=== PATIENT | female | born 1950 | race Caucasian/White ===

== ENCOUNTER 2017-02-06 11:55 | Emergency (ER) | payer BC, OTHER ==
[~2017-02-06] VITALS: Ht 172.7 cm; Wt 66.6 kg
[2017-02-06 11:57] VITALS: TEMP 36.7; Ht 172.7 cm; Wt 66.6 kg
[2017-02-06 12:10] VITALS: O2SAT 98
[2017-02-06] MEDS ORDERED: DILTIAZEM BOLUS / DRIP IV STA (12:11)
[2017-02-06] MEDS ORDERED: SODIUM CHLORIDE 0.9% 1000ML 1,000 ML IV STA (12:11)
[2017-02-06] MEDS ORDERED: SODIUM CHLORIDE 0.9% 1000ML 500 ML IV STA (12:11)
[2017-02-06] MEDS ORDERED: DILTIAZEM HCL 5 MG/ML 5 ML VIAL ONE (12:14)
[2017-02-06] MEDS ORDERED: DILTIAZEM HCL 5 MG/ML 5 ML VIAL IV STA (12:15)
[2017-02-06] MEDS ORDERED: DILTIAZEM HCL INJ 125 MG in DEXTROSE 5% 100ML IV PRN (12:15)
[2017-02-06 12:19] LABS: BASO % 0.6 %; BASO ABS # 0.04 K/uL (0-0.2); COMPLETE YES; EOS % 1.1 %; HEMATOCRIT 41.2 % (37-47); IG% 0.1 %; LYMPH % 40.3 %; LYMPH ABS # 2.82 K/uL (1.2-3.4); MEAN CELL VOLUME 97.6 fL (80-100); MEAN CORPUSCULAR HEMOGLOBIN 33.6 pg (25-34); MEAN CORPUSCULAR HGB CONC 34.5 g/dl (32-36); MEAN PLATELET VOLUME 10.9 fL (7.4-10.4); MONO % 10.6 %; NEUT % 47.3 %; PLATELET COUNT 257 K/uL (130-400); RED BLOOD COUNT 4.22 M/uL (4.2-5.4); WHITE BLOOD COUNT 6.99 K/uL (4.8-10.8)
--- NOTE | 2017-02-06 12:37 | DIAGNOSTIC IMAGING REPORT ---
CHEST ONE VIEW PORTABLE HISTORY: EVALUATE ALTERED MENTAL STATUS/WEAKNESS COMPARISON: Chest 10/19/2013. FINDINGS: Stable calcified nodule within the right lower lobe. The lungs are otherwise clear. Cardiac silhouette is normal in size. No pleural effusions. No pneumothorax. S-shaped scoliosis. IMPRESSION: No significant change compared to the prior study. No acute process. Electronically signed by: Richmond Tyler M.D. 02/06/2017 12:36 PM Dictated Date/Time: 02/06/2017 12:35 PM
[2017-02-06 12:38] LABS: CALCIUM 9.4 mg/dl (8.5-10.1)
[2017-02-06 12:40] LABS: ALT/SGPT 32 U/L (12-78); BLOOD UREA NITROGEN 26 mg/dl (7-18); BUN/CREATININE RATIO 37.9 (10-20); CARBON DIOXIDE 27 mmol/L (21-32); CHLORIDE 105 mmol/L (98-107); CREATININE 0.68 mg/dl (0.60-1.20); GLUCOSE 101 mg/dl (70-99); POTASSIUM 3.9 mmol/L (3.5-5.1); PROTHROMBIN TIME (PATIENT) 10.4 SECONDS (9.0-12.0); SODIUM 140 mmol/L (136-145)
[2017-02-06 12:49] LABS: ALB/GLOB RATIO 1.4 (0.9-2); ALKALINE PHOSPHATASE 89 U/L (45-117); AST/SGOT 27 U/L (15-37); THYROID STIMULATING HORMONE 0.508 uIu/ml (0.300-4.500)
[2017-02-06 13:21] LABS: URINE APPEARANCE CLEAR (CLEAR); URINE BILIRUBIN NEG (NEG); URINE COLOR YELLOW; URINE NITRITE NEG (NEG); URINE PH 6.5 (4.5-7.5); URINE SPECIFIC GRAVITY 1.009 (1.000-1.030); UROBILINOGEN NEG (NEG); ZZUR CULT IF INDIC CLEAN CATCH NO
[2017-02-06 13:24] LABS: MANUAL MICROSCOPIC REQUIRED? NO; REVIEW REQ? NO
[2017-02-06] MEDS ORDERED: RIVAROXABAN 20 MG TAB PO STA (13:39)
[2017-02-06] MEDS ORDERED: METO25TA56 PO (13:44)
[2017-02-06] MEDS ORDERED: RIVA1TAB4 PO (13:44)
[2017-02-06 14:20] VITALS: BP 125/75; PULSE 76; O2SAT 99
--- NOTE | 2017-02-06 17:58 | EMERGENCY ROOM VISIT NOTE ---
History Report prepared by Sonali: Rosalinda Johnson Under the Supervision of: Dr. Kevin Masterson M.D. First contact with patient: 12:05 Chief Complaint: TACHYCARDIA Stated Complaint: EXTREMELY FAST HEART BEAT, SWEATS History of Present Illness The patient is a 66 year old female who presents to the Emergency Room with complaints of persistent tachycardia starting 0300 in the morning. She woke up in the middle of the night and thought that she had had a nightmare because her heart was beating very hard. She followed the instructions given to by cardiology regarding stopping A fib. She was able to slow her heart rate slightly, but she was unable to slow her heart down to normal. She went to the gym and worked out. She felt dizzy. She returned home from the gym and her heart started racing again. She reports diaphoresis. She denies any SOB or chest pain. Her resting heart rate is usually 49. She is not on any medications for heart rate control. She is not on any blood thinners. She has experienced this before the in past, but is usually able to break out of it. She has an appointment with cardiology tomorrow and is considering an ablation. Source of History: patient Onset: 0300 Position: other (global) Quality: other (tachycardia) Timing: other (persistent) Associated Symptoms: + diaphoresis, No SOB, No chest pain Note: Pt reports dizziness. Review of Systems See HPI for pertinent positives & negatives. A total of 10 systems reviewed and were otherwise negative. Family History No pertinent family history stated. Social History Smoking Status: Never Smoker Marital Status: Housing Status: lives with significant other Occupation Status: employed Current/Historical Medications Scheduled Rivaroxaban (Xarelto), 20 MG PO DAILY Scheduled PRN Metoprolol Tartrate (Lopressor) (Lopressor), 1 TAB PO DIRECTED PRN for Dizziness or Vertigo Allergies Coded Allergies: No Known Allergies (Verified Allergy, Unknown, 06/17/06) Physical Exam Vital Signs Date Time Temp Pulse Resp B/P Pulse Ox O2 Delivery O2 Flow Rate FiO2 02/06/17 14:20 76 18 125/75 99 02/06/17 13:58 66 18 112/88 96 Room Air 02/06/17 13:12 64 18 118/72 99 Room Air 02/06/17 12:38 71 16 114/73 97 Room Air 02/06/17 12:25 98 Room Air 02/06/17 12:20 75 02/06/17 12:11 145 02/06/17 12:10 98 Room Air 02/06/17 11:57 36.7 157 18 146/98 97 Room Air Physical Exam GENERAL: Patient is in no acute distress. HEENT: No acute trauma, normocephalic atraumatic, mucous membranes moist, no nasal congestion, no scleral icterus. NECK: No stridor, no adenopathy, no meningismus, trachea is midline. LUNGS: Clear to auscultation bilaterally, no wheeze, no rhonchi, breath sounds equal. HEART: Tachycardic with a slightly irregular rhythm, no murmurs. ABDOMEN: Soft, nontender, bowel sounds positive, no hernias, no peritonitis. EXTREMITIES: No cyanosis or edema, full range of motion of all the joints without pain or difficulty, no signs for acute trauma. NEUROLOGIC: Oriented x 3, no acute motor or sensory deficits, no focal weakness. SKIN: No rash, no jaundice, no diaphoresis. Medical Decision & Procedures ER Provider Diagnostic Interpretation: X-ray results as stated below per interpretation by me and the radiologist: CHEST ONE VIEW PORTABLE HISTORY: EVALUATE ALTERED MENTAL STATUS/WEAKNESS COMPARISON: Chest 10/19/2013. FINDINGS: Stable calcified nodule within the right lower lobe. The lungs are otherwise clear. Cardiac silhouette is normal in size. No pleural effusions. No pneumothorax. S-shaped scoliosis. IMPRESSION: No significant change compared to the prior study. No acute process. Electronically signed by: Richmond Tyler M.D. 02/06/2017 12:36 PM Dictated Date/Time: 02/06/2017 12:35 PM Laboratory Results 02/06/17 12:11 Red Blood Count 4.22, Mean Corpuscular Volume 97.6, Mean Corpuscular Hemoglobin 33.6, Mean Corpuscular Hemoglobin Concent 34.5, Mean Platelet Volume 10.9, Neutrophils (%) (Auto) 47.3, Lymphocytes (%) (Auto) 40.3, Monocytes (%) (Auto) 10.6, Eosinophils (%) (Auto) 1.1, Basophils (%) (Auto) 0.6, Neutrophils # (Auto ) 3.30, Lymphocytes # (Auto) 2.82, Monocytes # (Auto) 0.74, Eosinophils # (Auto ) 0.08, Basophils # (Auto) 0.04 02/06/17 12:11 Test 02/06/17 12:11 02/06/17 13:15 White Blood Count 6.99 K/uL (4.8-10.8) Red Blood Count 4.22 M/uL (4.2-5.4) Hemoglobin 14.2 g/dL (12.0-16.0) Hematocrit 41.2 % (37-47) Mean Corpuscular Volume 97.6 fL (80-100) Mean Corpuscular Hemoglobin 33.6 pg (25-34) Mean Corpuscular Hemoglobin Concent 34.5 g/dl (32-36) Platelet Count 257 K/uL (130-400) Mean Platelet Volume 10.9 fL (7.4-10.4) Neutrophils (%) (Auto) 47.3 % Lymphocytes (%) (Auto) 40.3 % Monocytes (%) (Auto) 10.6 % Eosinophils (%) (Auto) 1.1 % Basophils (%) (Auto) 0.6 % Neutrophils # (Auto) 3.30 K/uL (1.4-6.5) Lymphocytes # (Auto) 2.82 K/uL (1.2-3.4) Monocytes # (Auto) 0.74 K/uL (0.11-0.59) Eosinophils # (Auto) 0.08 K/uL (0-0.5) Basophils # (Auto) 0.04 K/uL (0-0.2) RDW Standard Deviation 43.8 fL (36.4-46.3) RDW Coefficient of Variation 12.3 % (11.5-14.5) Immature Granulocyte % (Auto) 0.1 % Immature Granulocyte # (Auto) 0.01 K/uL (0.00-0.02) Prothrombin Time 10.4 SECONDS (9.0-12.0) Prothromb Time International Ratio 1.0 (0.9-1.1) Activated Partial Thromboplast Time 26.4 SECONDS (21.0-31.0) Partial Thromboplastin Ratio 1.0 Anion Gap 8.0 mmol/L (3-11) Est Creatinine Clear Calc Drug Dose 82.1 ml/min Estimated GFR () 105.6 Estimated GFR (Non- 91.2 BUN/Creatinine Ratio 37.9 (10-20) Calcium Level 9.4 mg/dl (8.5-10.1) Total Bilirubin 0.3 mg/dl (0.2-1) Aspartate Amino Transf (AST/SGOT) 27 U/L (15-37) Alanine Aminotransferase (ALT/SGPT) 32 U/L (12-78) Alkaline Phosphatase 89 U/L (45-117) Troponin I < 0.015 ng/ml (0-0.045) Total Protein 7.6 gm/dl (6.4-8.2) Albumin 4.4 gm/dl (3.4-5.0) Globulin 3.2 gm/dl (2.5-4.0) Albumin/Globulin Ratio 1.4 (0.9-2) Thyroid Stimulating Hormone (TSH) 0.508 uIu/ml (0.300-4.500) Urine Color YELLOW Urine Appearance CLEAR (CLEAR) Urine pH 6.5 (4.5-7.5) Urine Specific [place] 1.009 (1.000-1.030) Urine Protein NEG (NEG) Urine Glucose (UA) NEG (NEG) Urine Ketones NEG (NEG) Urine Occult Blood NEG (NEG) Urine Nitrite NEG (NEG) Urine Bilirubin NEG (NEG) Urine Urobilinogen NEG (NEG) Urine Leukocyte Esterase NEG (NEG) Laboratory results reviewed by me. Medications Administered Medications (Trade) Dose Ordered Sig/Suzette Route Start Time Stop Time Status Last Admin Dose Admin Sodium Chloride 500 ml @ 999 mls/hr Q31M STAT IV 02/06/17 12:11 02/06/17 12:41 DC 02/06/17 12:35 999 MLS/HR Sodium Chloride (Nss 1000ml) 1,000 ml @ 200 mls/hr Q5H STAT IV 02/06/17 12:11 02/06/17 14:40 DC 02/06/17 12:35 200 MLS/HR Rivaroxaban (Xarelto Tab) 20 mg NOW STAT PO 02/06/17 13:39 02/06/17 13:40 DC 02/06/17 14:17 20 MG ECG Indication: tachycardia Rate (beats per minute): 146 Rhythm: other (possible A fib or A flutter) Findings: other (old septal infarct, nonspecific T wave change, no acute NM) Change: Repeat EKG: NSR, rate 73, no ischemia, no ectopy. ED Course 1208: The patient was evaluated in room A10. A complete history and physical exam was performed. 1211: NSS 1000 ml @ 200 mls/hr IV, NSS 500 ml @ 999 mls/hr IV. 1220: The patient has returned to a normal rhythm without any intervention. 1257: I discussed the patient's case with Dr. [place] [facility]. He recommend the patient be started on Xarelto. He will see the patient in the office in the near future. 1328: I reevaluated the patient. I discussed results and discharge instructions : she verbalized understanding and agreement. The patient is ready for discharge. 1339: Xarelto Tab 20 mg PO. Medical Decision Differential diagnoses considered include A fib, A flutter, SVT, electrolyte imbalance, anemia, thyroid disorder, cardiac ischemia. There is no leukocytosis or concerning anemia. No significant electrolyte abnormality, kidney failure, hepatitis. The patient appears to be a euthyroid state. EKG shows an SVT, possibly A. fib or a flutter. No acute ischemic change. Cardiac enzyme testing times one is not consistent with acute cardiac injury. Urinalysis does not show infection. Chest x-ray shows no pneumonia, cardiomegaly or CHF. The patient received IV saline. She was about to receive IV diltiazem when she suddenly broke to a normal sinus rhythm, no rate controlling medications were ever administered. The patient has remained in a normal sinus rhythm. Repeat EKG confirms a normal sinus rhythm, no ischemia. I spoke to the inspection supervisor on-call. He recommended anticoagulation with Xarelto. The patient was given an oral dose here prior to discharge. The patient is going to follow with cardiology. Xarelto daily for now as anticoagulation. She was given a prescription for Lopressor to use if her tachycardia returns. She was to use the Lopressor when necessary. If her symptoms do return, she should report back for reassessment. Consults Time Called: 0148 Consulting Physician: Dr. Lisa, [facility] [place] Returned Call: [phone] I discussed the patient's case with him. He recommend the patient be started on Xarelto. He will see the patient in the office in the near future. Impression Primary Impression: Tachycardia Scribe Attestation The scribe's documentation has been prepared under my direction and personally reviewed by me in its entirety. I confirm that the note above accurately reflects all work, treatment, procedures, and medical decision making performed by me. Departure Information Dispostion Home / Self-Care Prescriptions Metoprolol Tartrate (Lopressor) (Lopressor) 25 Mg Tab 1 TAB PO DIRECTED Y for Dizziness or Vertigo for 5 Days, #5 TAB 1 Refill take a tablet for palpitation or racing heart rate Prov: Kevin Masterson M.D. 02/06/17 Rivaroxaban (XARELTO) 20 Mg Tab 20 MG PO DAILY for 30 Days, #30 TAB Prov: Kevin Masterson M.D. 02/06/17 Referrals Aniya TerryD.O. (PCP) Forms HOME CARE DOCUMENTATION FORM, IMPORTANT VISIT INFORMATION Patient Instructions My [facility] Additional Instructions Xarelto daily use Lopressor tab for recurrence of the symptoms be sure to follow with cardiology return for worsening symptoms
== END 2017-02-06 14:22 | disposition home or self-care (01) ==
LOC: C.EDB 11:57 → C.EDA 14:22
DX: R00.0 Tachycardia, unspecified (principal)

== ENCOUNTER → 2017-09-20 | Outpatient (CLI) | payer BC ==
[~2017-09-20] MED LIST: METO25TA56 PO; RIVA1TAB4 PO
--- NOTE | 2017-09-24 13:37 | MAMMOGRAPHY REPORT ---
BILATERAL DIGITAL SCREENING MAMMOGRAM TOMOSYNTHESIS WITH CAD: 09/20/2017 CLINICAL HISTORY: Routine screening. Patient has no complaints. TECHNIQUE: Breast tomosynthesis in addition to standard 2D mammography was performed. Current study was also evaluated with a Computer Aided Detection (CAD) system. COMPARISON: Comparison is made to exams dated: 08/23/2016 mammogram, 12/07/2011 mammogram, 08/07/2010 mammogram - [facility], 06/17/2008, and 11/13/2007. BREAST COMPOSITION: The tissue of both breasts is heterogeneously dense, which may obscure small mas ses. FINDINGS: There is a nodular 8 mm asymmetry seen within the left lateral breast middle depth on the cc view, which may represent normal overlapping fibroglandular tissue although spot compression tomos ynthesis views and possible breast ultrasound are recommended for further evaluation. The remainder of both breasts are stable compared to prior exams, without suspicious masses, calcific ations, or areas of architectural distortion noted. Scattered bilateral benign-appearing calcificati ons are not significantly changed. IMPRESSION: ACR BI-RADS CATEGORY 0: INCOMPLETE EVALUATION: NEED ADDITIONAL IMAGING EVALUATION Left breast asymmetry, for which additional imaging evaluation is recommended. The patient will be c alled to schedule an appointment. Approximately 10% of breast cancers are not detected with mammography. A negative mammographic report should not delay biopsy if a clinically suggestive mass is present. Lamar Bradford M.D. /:09/20/2017 16:37:51 Diamond Sander: Chantel Simpson, [facility] letter sent: Addl Imaging 0 BI-RADS Code: ACR BI-RADS Category 0: Incomplete Evaluation: Need Additional Imaging Evaluation
== END | disposition home or self-care (01) ==
LOC: C.MAMM 14:42
PROVIDERS: ATTEND Family Medicine
DX: Z12.31 Encounter for screening mammogram for malignant neoplasm of breast (principal); N64.89 Other specified disorders of breast

== ENCOUNTER → 2017-09-30 | Outpatient (CLI) | payer OTHER ==
--- NOTE | 2017-09-30 15:09 | MAMMOGRAPHY REPORT ---
UNILATERAL LEFT DIGITAL DIAGNOSTIC MAMMOGRAM TOMOSYNTHESIS AND TARGETED LEFT ULTRASOUND: 09/30/2017 CLINICAL HISTORY: 67-year-old woman called back from screening mammography for an 8 mm asymmetry in t he lateral left breast. No family history of breast cancer. TECHNIQUE: Left CC and MLO 2-D and tomosynthesis spot compression views were obtained. COMPARISON: Comparison is made to exams dated: 09/20/2017 mammogram, 08/23/2016 mammogram, 12/07/2011 mammogram, 08/07/2010 mammogram - [facility], 06/17/2008, and 11/13/2007. BREAST COMPOSITION: The tissue of the left breast is heterogeneously dense, which may obscure small masses. FINDINGS: The additional spot compression 2-D and tomosynthesis views of the left breast demonstrate effacement of the 8 mm asymmetry identified in the lateral on the middle one third of the breast. Th ere is no definite persistent mass or focal area of architectural distortion seen on the tomosynthesi s images. Further evaluation with ultrasound was performed. Targeted ultrasound was performed throughout the lateral left breast. Incidental note is made of a b enign anechoic simple cyst in the 5:00 periareolar left breast measuring 6.5 x 1.8 x 4.6 mm. No susp icious solid mass identified at the lateral left breast on ultrasound. IMPRESSION: ACR BI-RADS CATEGORY 2: BENIGN, TARGETED ULTRASOUND ACR BI-RADS CATEGORY 2: BENIGN Effacement of the 8 mm asymmetry in the lateral left breast with additional supplemental 2-D and jonatan synthesis spot compression views, and no suspicious sonographic correlate identified. This finding m ost likely represented normal overlapping fibroglandular tissue. There is no mammographic or targete d sonographic evidence of malignancy in the left breast. Recommend return to annual screening mammog sandie schedule. These results and recommendations were discussed with the patient at the time of the exam. Approximately 10% of breast cancers are not detected with mammography. A negative mammographic report should not delay biopsy if a clinically suggestive mass is present. Caitie Trimble M.D. ay/:09/30/2017 08:48:21 Facility Operations Manager: Chantel Simpson, [facility] letter sent: Normal 1/2 BI-RADS Code: ACR BI-RADS Category 2: Benign Ultrasound BI-RADS: ACR BI-RADS Category 2: Benign
== END | disposition home or self-care (01) ==
LOC: C.MAMM 08:21
PROVIDERS: ATTEND Family Medicine
DX: N64.89 Other specified disorders of breast (principal)

== ENCOUNTER 2025-07-19 09:38 | Inpatient (IN) ==
[2025-07-19] MEDS: OPTIRAY 320 125ml IV ONE (10:04)
[2025-07-19 10:33] LABS: Hematocrit (blood only) 35.8 % (37.0-47.0); Hemoglobin 11.8 g/dl (12.0-16.0); Immature Granulocytes # (auto) 0.01 K/uL (0.01-0.20); Immature Granulocytes % (auto) 0.2 %; Mean Corpuscular Hemoglobin 31.4 pg (25.0-34.0); Mean Corpuscular Volume 95.2 fL (80.0-100.0); Platelet Count 270 K/uL (130-400); RDW Standard Deviation 43.0 fL (36.4-46.3); Red Blood Count 3.76 M/uL (4.20-5.40); White Blood Count 6.13 K/ul (4.8-10.8)
--- NOTE | 2025-07-19 10:35 | CT Scan Report ---
CT angio head w con CLINICAL HISTORY: 75 years-old Female with neuro deficit, acute stroke suspected. Acute stroke lik e symptoms COMPARISON STUDY: Head CT same day, brain MR 07/20/2011 TECHNIQUE: Following the IV administration of 112 cc of Optiray, CT angiogram of the brain was perfor med from the skull base to the vertex. Images are reviewed in the axial, sagittal, and coronal planes . 3-D MIPS images are created and assessed. IV contrast was administered without complication. All me asurements were obtained according to NASCET criteria. A dose lowering technique was utilized adherin g to the principles of ALARA. FINDINGS: CT BRAIN: Dictated separately. 11 mm calcified extra-axial focus within the anterior right middle cranial fossa May represent a meningioma. CT ANGIOGRAM OF THE BRAIN: The imaged bilateral internal carotid arteries are patent. The bilateral anterior and middle cerebral arteries are also patent. The vertebrobasilar system and posterior cerebral arteries are widely nor[place] nt. There is no aneurysm, high-grade stenosis, or proximal branch occlusion identified. Dural sinuses appear patent. IMPRESSION: Unremarkable CTA of the head. ACT 112: Negative or not required by law. The above report was generated using voice recognition software. It may contain grammatical, syntax o r spelling errors. Electronically signed by: Hussein Hogue M.D. 07/19/2025 10:33 AM
[2025-07-19 10:41] LABS: INR 1.0 (0.9-1.1); Partial Thromboplastin Time 27 Seconds (21-31); Prothrombin Time 11.0 Seconds (9.0-12.0)
--- NOTE | 2025-07-19 10:44 | CT Scan Report ---
CT SCAN OF THE BRAIN WITHOUT IV CONTRAST CLINICAL HISTORY: Neuro deficit. Acute stroke suspected. COMPARISON STUDY: MRI of the brain July 20, 2011. TECHNIQUE: Unenhanced axial CT scan of the brain was performed from the vertex to the skull base. A dose lowering technique was utilized adhering to the principles of ALARA. FINDINGS: Brain parenchyma: No acute intracranial hemorrhage, midline shift or mass effect is present. Flannery-whi te matter differentiation is preserved. There are no extra-axial fluid collections. There are no find ings to suggest acute dural sinus thrombosis or acute territorial infarct. Mild white matter hypodens ities suggest small vessel disease. Ventricles, sulci, cisterns: There is no hydrocephalus. The basal cisterns are patent. Calvarium: Unremarkable. Sinuses and mastoids: The visualized paranasal sinuses are clear. The mastoid air cells are well pneu matized. Orbits: The bony orbits are grossly intact. IMPRESSION: No acute intracranial findings. ACT 112: Negative or not required by law. Electronically signed by: Teo Gaming M.D. 07/19/2025 10:43 AM
[2025-07-19 10:49] LABS: Alanine Aminotransferase 9.0 U/L (7-52); Albumin Globulin Ratio 1.2 (0.9-2); Albumin Level 3.6 gm/dl (3.4-5.0); Alkaline Phosphatase 39.0 U/L (34-104); Anion Gap 8.0 (3-11); Bilirubin,Total 0.6 mg/dl (0.2-1.0); Blood Urea Nitrogen 8.0 mg/dl (6-23); Calcium 8.7 mg/dl (8.6-10.3); Carbon Dioxide 25.0 mmol/L (21-32); Chloride 99.0 mmol/L (98-107); Creatinine Clr Calc Pharmacy 60.9 ml/min; Globulin 3.1 gm/dl (2.5-4.0); Glucose 88.0 mg/dl (70-99(Fasting)); Magnesium 1.8 mg/dl (1.7-2.4); Potassium 3.5 mmol/L (3.5-5.1); Sodium 132.0 mmol/L (136-145); Total Protein 6.7 gm/dl (6.0-8.3)
--- NOTE | 2025-07-19 10:49 | CT Scan Report ---
CT angio neck with con CLINICAL HISTORY: neuro deficit, acute stroke suspected. TECHNIQUE: Following the IV administration of 112 of Optiray, CT angiogram of the neck was performed from the aortic arch to the skull base. Images are reviewed in the axial, sagittal, and coronal plane s. 3-D MIPS images are created and assessed. IV contrast was administered without complication. All m easurements were calculated based on NASCET criteria. A dose lowering technique was utilized adherin g to the principles of ALARA. CT DOSE: 1111.65 mGy.cm COMPARISON STUDY: None FINDINGS: There are mild calcifications at the carotid bulbs. Bilateral common and internal carotid a rteries and bilateral vertebral arteries show no significant narrowing or occlusion. IMPRESSION: No significant arterial narrowing or occlusion seen at the neck. ACT 112: Negative or not required by law. The above report was generated using voice recognition software. It may contain grammatical, syntax o r spelling errors. Electronically signed by: Arvin Bowles M.D. 07/19/2025 10:48 AM
[2025-07-19] MEDS: CLOPIDOGREL BISULFATE 300 MG TAB PO STA (11:26)
[2025-07-19] MEDS: ASPIRIN 81 MG CHEW PO STA (11:26)
[2025-07-19] MEDS ORDERED: ACETAMINOPHEN 325 MG TAB PO PRN (12:03)
[2025-07-19] MEDS ORDERED: MELATONIN 3 MG TAB PO PRN (12:03)
--- NOTE | 2025-07-19 12:42 | CT Scan Report ---
CT SCAN OF THE BRAIN WITHOUT IV CONTRAST CLINICAL HISTORY: Headache after aspirin and Plavix. Evaluate for bleed. COMPARISON STUDY: Head CT and CTA of the head performed earlier today. TECHNIQUE: Unenhanced axial CT scan of the brain was performed from the vertex to the skull base. A dose lowering technique was utilized adhering to the principles of ALARA. CT DOSE: 625.8 mGy.cm FINDINGS: Incidental note is made of intravascular contrast from recent CTA. No acute intracranial he morrhage is identified. Ventricular system is stable. Basal cisterns are patent. There are no extra a xial collections. There are no findings to suggest acute dural sinus thrombosis or acute territorial infarct. IMPRESSION: No acute intracranial findings. ACT 112: Negative or not required by law. Electronically signed by: Teo Gaming M.D. 07/19/2025 12:41 PM
--- NOTE | 2025-07-19 13:03 | History & Physical Report ---
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 she's has extensively FHx of stroke. 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 she's call her granddaughter who works as an EMS upon arrival in our ED, her expressive aphasia resolved; loading with aspirin, plavix and around 10:45am, notice headache episode, repeat CT head was ordered, which is negative for bleeding 1. expressive aphasia, TIA episode 2. hx of A-fib s/p ablation 3. PMH of osteoporosis 4. hx of hormonal deficiency on estrogen-medroxyprogesterone brain MRI, echo with bubble studies event monitoring aspirin, plavix, IV fluid, crestor 20mg she's active at baseline, f/u on a1c and lipid panel she will prefer to f/u with the interactive designer at [facility] we discussed that she's need to hold estrogen-medroxprogesterone and consult to her ground nuclear weapons assembly officer fioricet for headache (2) TIA (transient ischemic attack): History of Present Illness Chief Complaint: expressive aphasia at 7:45am this morning she's on hormonal replacement headache episode after aspirin and plavix Primary Care Provider: Aniya Terry DO Mary Gaviria is a 75 yo woman with PMH of A-fib s/p ablation 3 years ago at ([facility]), osteoporosis, scolosis, she's is a retired [employer] Professor this morning, when she's was exercise in the gym, she's has significant expressive aphasia,, unable to name simple object she's called her daughter, her granddaughter is a EMS, and brought here here for evaluation upon arrival to ED, her expressive aphasia resolved, she was loaded with aspirin, plavix and CT head negative for bleeding on evaluation at 10:45am, she's has no problem with speech and no problem with comprehension given she was having posterior headache and nausea, repeat CT head was ordered to r/o intracranial bleeding for her TIA, no numbness, no weaknness; no dizziness, no loss of consciouness she's does has extensive Fhx of stroke in family (mother, aunt and grandmother) for her A-fib, ablation at [facility], she's denied any subjective palpitation we discussed at length about f/u with cardiology and she requested appointment to be made with [facility] interactive designer no abdominal pain, no dysuria Allergies Allergy/AdvReac Type Severity Reaction Status Date / Time Penicillins Allergy swelling, Verified 01/25/22 13:51 hives Home Medications Medication Instructions Recorded Confirmed Type alendronate 35 mg tablet 35 mg PO UD 07/19/25 07/19/25 History conj estrogen-medroxyprogesterone 1 tab PO DAILY 07/19/25 07/19/25 History 0.45 mg-1.5 mg tablet (Prempro) tretinoin 0.025 % topical cream 0 applic topical Q OTHER DAY 07/19/25 07/19/25 History Past Med/Surg History Problem List (Updated 07/19/25 @ 12:59 by Blanca Springer DO) TIA (transient ischemic attack) Expressive aphasia S/P laparoscopic hernia repair Tachycardia (Acute) Left inguinal hernia [facility] in [place] 1976 Medical History Hearing deficit [facility] History of atrial fibrillation dx 5 years ago - resolved after ablation 3 years ago at [facility] - does not follow w/ cardiology History of migraine Left inguinal hernia Scoliosis Surgical History H/O left inguinal hernia repair (11/05/19) Laparoscopic left inguinal hernia repair. Dr. Paredes 11/05/19 History of anesthesia reaction 2005 - [facility] - bone marrow harvest - "i went into shock. i spent 8 hours in the ICU" - no issues w/ surgery/anesthesia since. History of arthroscopy of shoulder RT History of bone marrow donation History of cardiac radiofrequency ablation 3 years ago - [facility] History of colonoscopy History of right inguinal hernia repair S/P laparoscopic hernia repair Status post tonsillectomy Family History Sister Cancer Mother Stroke Grandmother Stroke Father Diabetes Social History (Reviewed 04/21/23 @ 10:58 by NIKIA Last Smoking Status: Never smoker Second Hand Exposure: Yes (as a child); Do You Dip or Chew Tobacco: No; Hx Alcohol Use: No Hx Substance Use: No Preferred Language: Iraqi Communication Ability: Effective Visual Impairment: No Limitations Credit Charge Authorizer Required: No Beliefs That Will Affect Care: None marital status: Current Living Situation: Spouse current occupational status: employed 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 Feels Safe at Home: Yes Assistive Devices: Contacts, Glasses and Hearing Aid - Bilateral Review of Systems Review of Systems: Constitutional: No Weight Change, No Fever, No Chills Cardiovascular: No Chest Pain, No SOB, No PND, No Dyspnea on Exertion, No Orthopnea, No Claudication, No Edema, No Palpitations + for hx of A-fib s/p ablation Respiratory: No Cough, No Sputum, No Wheezing, No Smoke Exposure, No Dyspnea Gastrointestinal: No Nausea, No Vomiting, No Diarrhea, No Constipation, No Pain, No Heartburn, No Anorexia, No Dysphagia, No Hematochezia Genitourinary: no dysuria ground nuclear weapons assembly officer: + for hormonal replacement Musculoskeletal: No Arthralgias, No Myalgias, No Joint Swelling, No Joint Stiffness, No Back Pain, No Neck Pain, No Injury History Neuro: No Weakness, No Numbness, No Paresthesias, No Loss of Consciousness, No Syncope, No Dizziness, + for expressive aphasia; + for headache Psych: No Anxiety/Panic, No Depression, No Insomnia, No Personality Changes, No Delusions, No Rumination, No SI/HI/AH/VH, No Social Issues, No Memory Changes, No Violence/Abuse Hx., No Eating Concerns Physical Exam Physical Exam: VITALS: Reviewed. WEIGHT/BMI reviewed. GEN: Healthy appearing, well-developed, NAD. Neuro: AAox3; no pronator drift; normal finger to nose; 5/5 strength; CN 2-12 grossly intact able to repeat sentence; able to name objects PSYCH: Good Judgment. AOx3. Normal memory, mood, and affect. HEENT -Head: NC/AT; NECK: Supple, with no masses. CV: RRR, no m/r/g. LUNGS: CTAB, no w/r/c. ABD: Soft, NT/ND, NBS, no masses or organomegaly. : N/A SKIN: Warm, well perfused. No skin rashes or abnormal lesions. MSK: No deformities, Normal gait. EXT: No clubbing, cyanosis, or edema. Results & Data Results & Data Vital Signs (Past 12 Hours) Vital Signs Temp Pulse Resp BP Pulse Ox O2 Del Method 07/19/25 11:00 158/88 H 07/19/25 10:57 86 17 07/19/25 10:48 114 H 20 07/19/25 10:32 111 H 07/19/25 10:30 169/103 H 07/19/25 10:30 111 H 21 169/103 H 07/19/25 10:27 162/106 H 07/19/25 10:24 112 H 23 07/19/25 09:41 36.3 C L 90 18 161/83 H 100 Room Air Laboratory Results Laboratory Results - last 72 hr 07/19/25 07/19/25 07/19/25 10:08 10:17 10:18 WBC 6.13 RBC 3.76 L Hgb 11.8 L POC Hgb 12.6 Hct 35.8 L POC Hct 37 MCV 95.2 MCH 31.4 MCHC 33.0 RDW Std Deviation 43.0 RDW Coeff of Nikolay 12.3 Plt Count 270 MPV 10.0 Immature Gran % (Auto) 0.2 Neut % (Auto) 53.9 Lymph % (Auto) 35.6 [place] % (Auto) 8.6 Eos % (Auto) 1.0 Baso % (Auto) 0.7 Neut # (Auto) 3.31 Lymph # (Auto) 2.18 [place] # (Auto) 0.53 Eos # (Auto) 0.06 Baso # (Auto) 0.04 Immature Gran # (Auto) 0.01 PT 11.0 INR 1.0 APTT 27 PTT Ratio 1.0 POC Sodium 132 L Sodium 132 L POC Potassium 4.0 Potassium 3.5 POC Chloride 97 L Chloride 99 Carbon Dioxide 25 POC Total CO2 26 Anion Gap 8 POC Anion Gap 15.0 L POC BUN 8 BUN 8 Creatinine 0.66 POC Creatinine 0.7 Est Cr Clr Drug Dosing 60.9 eGFR 91.42 BUN/Creatinine Ratio 12.1 Glucose 88 POC Glucose 94 POC Glucose (other) 86 Calcium 8.7 POC Ioniz Calcium Valentine 1.08 L Magnesium 1.8 Total Bilirubin 0.6 AST 18 ALT 9 Alkaline Phosphatase 39 Troponin I High Sens 3.0 Total Protein 6.7 Albumin 3.6 Globulin 3.1 Albumin/Globulin Ratio 1.2 Blood Type O Positive Antibody Screen NEGATIVE Diagnostic Findings Laboratory Results WBC 6.13 K/ul (4.8-10.8) 07/19/25 10:08 RBC 3.76 M/uL (4.20-5.40) L 07/19/25 10:08 Hgb 11.8 g/dl (12.0-16.0) L 07/19/25 10:08 POC Hgb 12.6 g/dl (12.0-16.0) 07/19/25 10:18 Hct 35.8 % (37.0-47.0) L 07/19/25 10:08 POC Hct 37 % (37-47) 07/19/25 10:18 MCV 95.2 fL (80.0-100.0) 07/19/25 10:08 MCH 31.4 pg (25.0-34.0) 07/19/25 10:08 MCHC 33.0 g/dL (32.0-36.0) 07/19/25 10:08 RDW Std Deviation 43.0 fL (36.4-46.3) 07/19/25 10:08 RDW Coeff of Nikolay 12.3 % (11.5-14.5) 07/19/25 10:08 Plt Count 270 K/uL (130-400) 07/19/25 10:08 MPV 10.0 fL (9.4-12.4) 07/19/25 10:08 Immature Gran % (Auto) 0.2 % 07/19/25 10:08 Neut % (Auto) 53.9 % 07/19/25 10:08 Lymph % (Auto) 35.6 % 07/19/25 10:08 [place] % (Auto) 8.6 % 07/19/25 10:08 Eos % (Auto) 1.0 % 07/19/25 10:08 Baso % (Auto) 0.7 % 07/19/25 10:08 Neut # (Auto) 3.31 K/uL (1.40-6.50) 07/19/25 10:08 Lymph # (Auto) 2.18 K/uL (1.20-3.40) 07/19/25 10:08 [place] # (Auto) 0.53 K/uL (0.11-0.59) 07/19/25 10:08 Eos # (Auto) 0.06 K/uL (0.00-0.50) 07/19/25 10:08 Baso # (Auto) 0.04 K/uL (0.00-0.20) 07/19/25 10:08 Immature Gran # (Auto) 0.01 K/uL (0.01-0.20) 07/19/25 10:08 PT 11.0 Seconds (9.0-12.0) 07/19/25 10:08 INR 1.0 (0.9-1.1) 07/19/25 10:08 APTT 27 Seconds (21-31) 07/19/25 10:08 PTT Ratio 1.0 07/19/25 10:08 POC Sodium 132 mmol/L (135-144) L 07/19/25 10:18 Sodium 132 mmol/L (136-145) L 07/19/25 10:08 POC Potassium 4.0 mmol/L (3.3-5.0) 07/19/25 10:18 Potassium 3.5 mmol/L (3.5-5.1) 07/19/25 10:08 POC Chloride 97 mmol/L (101-112) L 07/19/25 10:18 Chloride 99 mmol/L (98-107) 07/19/25 10:08 Carbon Dioxide 25 mmol/L (21-32) 07/19/25 10:08 POC Total CO2 26 mmol/L (24-31) 07/19/25 10:18 Anion Gap 8 (3-11) 07/19/25 10:08 POC Anion Gap 15.0 mmol/L (16-25) L 07/19/25 10:18 POC BUN 8 mg/dl (7-18) 07/19/25 10:18 BUN 8 mg/dl (6-23) 07/19/25 10:08 Creatinine 0.66 mg/dl (0.6-1.2) 07/19/25 10:08 POC Creatinine 0.7 mg/dl (0.6-1.3) 07/19/25 10:18 Est Cr Clr Drug Dosing 60.9 ml/min 07/19/25 10:08 eGFR 91.42 07/19/25 10:08 BUN/Creatinine Ratio 12.1 (10-20) 07/19/25 10:08 Glucose 88 mg/dl (70-99(Fasting)) 07/19/25 10:08 POC Glucose 94 mg/dl (70-99) 07/19/25 10:17 POC Glucose (other) 86 mg/dl (70-99) 07/19/25 10:18 Calcium 8.7 mg/dl (8.6-10.3) 07/19/25 10:08 POC Ioniz Calcium Valentine 1.08 mmol/l (1.12-1.32) L 07/19/25 10:18 Magnesium 1.8 mg/dl (1.7-2.4) 07/19/25 10:08 Total Bilirubin 0.6 mg/dl (0.2-1.0) 07/19/25 10:08 AST 18 U/L (13-39) 07/19/25 10:08 ALT 9 U/L (7-52) 07/19/25 10:08 Alkaline Phosphatase 39 U/L (34-104) 07/19/25 10:08 Troponin I High Sens 3.0 pg/ml (0-14) 07/19/25 10:08 Total Protein 6.7 gm/dl (6.0-8.3) 07/19/25 10:08 Albumin 3.6 gm/dl (3.4-5.0) 07/19/25 10:08 Globulin 3.1 gm/dl (2.5-4.0) 07/19/25 10:08 Albumin/Globulin Ratio 1.2 (0.9-2) 07/19/25 10:08 Blood Type O Positive 07/19/25 10:08 Antibody Screen NEGATIVE 07/19/25 10:08 Impressions Head CTA 07/19/25 09:55 CT angio head w con CLINICAL HISTORY: 75 years-old Female with neuro deficit, acute stroke suspected. Acute stroke like symptoms COMPARISON STUDY: Head CT same day, brain MR 07/20/2011 TECHNIQUE: Following the IV administration of 112 cc of Optiray, CT angiogram of the brain was performed from the skull base to the vertex. Images are reviewed in the axial, sagittal, and coronal planes. 3-D MIPS images are created and assessed. IV contrast was administered without complication. All measurements were obtained according to NASCET criteria. A dose lowering technique was utilized adhering to the principles of ALARA. FINDINGS: CT BRAIN: Dictated separately. 11 mm calcified extra-axial focus within the anterior right middle cranial fossa May represent a meningioma. CT ANGIOGRAM OF THE BRAIN: The imaged bilateral internal carotid arteries are patent. The bilateral anterior and middle cerebral arteries are also patent. The vertebrobasilar system and posterior cerebral arteries are widely patent. There is no aneurysm, high-grade stenosis, or proximal branch occlusion identified. Dural sinuses appear patent. IMPRESSION: Unremarkable CTA of the head. ACT 112: Negative or not required by law. The above report was generated using voice recognition software. It may contain grammatical, syntax or spelling errors. Electronically signed by: Hussein Hogue M.D. 07/19/2025 10:33 AM Neck CTA 07/19/25 09:55 CT angio neck with con CLINICAL HISTORY: neuro deficit, acute stroke suspected. TECHNIQUE: Following the IV administration of 112 of Optiray, CT angiogram of the neck was performed from the aortic arch to the skull base. Images are reviewed in the axial, sagittal, and coronal planes. 3-D MIPS images are created and assessed. IV contrast was administered without complication. All measurements were calculated based on NASCET criteria. A dose lowering technique was utilized adhering to the principles of ALARA. CT DOSE: 1111.65 mGy.cm COMPARISON STUDY: None FINDINGS: There are mild calcifications at the carotid bulbs. Bilateral common and internal carotid arteries and bilateral vertebral arteries show no significant narrowing or occlusion. IMPRESSION: No significant arterial narrowing or occlusion seen at the neck. ACT 112: Negative or not required by law. The above report was generated using voice recognition software. It may contain grammatical, syntax or spelling errors. Electronically signed by: Arvin Bowles M.D. 07/19/2025 10:[address] 07/19/25 11:58 CT SCAN OF THE BRAIN WITHOUT IV CONTRAST CLINICAL HISTORY: Headache after aspirin and Plavix. Evaluate for bleed. COMPARISON STUDY: Head CT and CTA of the head performed earlier today. TECHNIQUE: Unenhanced axial CT scan of the brain was performed from the vertex to the skull base. A dose lowering technique was utilized adhering to the principles of ALARA. CT DOSE: 625.8 mGy.cm FINDINGS: Incidental note is made of intravascular contrast from recent CTA. No acute intracranial hemorrhage is identified. Ventricular system is stable. Basal cisterns are patent. There are no extra axial collections. There are no findings to suggest acute dural sinus thrombosis or acute territorial infarct. IMPRESSION: No acute intracranial findings. ACT 112: Negative or not required by law. Electronically signed by: Teo Gaming M.D. 07/19/2025 12:41 PM Code Status & VTE Plan Code Status full code PG Care Time/CCT Total # of Minutes Spent Total Time Spent with Patient: Total time spent is greater than 50% in coordination of care (as documented) at patient's floor/unit and/or counseling patient: Coding Level of Care Code 15697 INT INP/OBS CARE 2/55MIN Diagnoses Expressive aphasia R47.01 TIA (transient ischemic attack) G45.9 Time Spent (min) 55
--- NOTE | 2025-07-19 13:06 | Magnetic Resonance Report ---
MR brain wo con CLINICAL HISTORY: expressive aphasia COMPARISON STUDY: Head CT earlier today and MRI of 07/20/2011 FINDINGS: There is motion artifact on some sequences. No restricted diffusion seen to suggest acute i nfarction. No mass effect, midline shift, or hydrocephalus. There are multiple scattered small foci o f increased FLAIR signal intensity in the periventricular white matter which is nonspecific, but usua lly represents chronic small vessel ischemic change. IMPRESSION: No evidence of acute infarction seen. ACT 112: Negative or not required by law. Electronically signed by: Arvin Bowles M.D. 07/19/2025 1:04 PM
[2025-07-19] MEDS: BUTALBITAL/ACETAMIN/CAFFEINE TAB PO STA (13:17)
[2025-07-19] MEDS: ONDANSETRON INJ 2 MG/ML 2 ML VIAL IV PRN (13:18)
[2025-07-19] MEDS: SODIUM CHLORIDE 0.9% 500 ML IV SCH (13:25)
--- NOTE | 2025-07-19 14:09 | Electrocardiogram Report ---
Test Reason : Blood Pressure : */* mmHG Vent. Rate : 115 BPM Atrial Rate : 115 BPM P-R Int : 224 ms QRS Dur : 86 ms QT Int : 318 ms P-R-T Axes : * -34 67 degrees QTcB Int : 439 ms Sinus tachycardia with 1st degree A-V block Left axis deviation ST segement changes concerning for ischemia Abnormal ECG When compared with ECG of 06-Feb-2017 12:21, Vent. rate has increased by [address] now depressed in Inferior leads ST now depressed in Anterolateral leads Nonspecific T wave abnormality now evident in Inferior leads Nonspecific T wave abnormality, worse in Lateral leads Confirmed by Donsi Heard ([id number]) on 07/19/2025 2:08:26 PM Referred By: Confirmed By: Donis Heard
--- NOTE | 2025-07-19 14:28 | Emergency Department Note ---
Impression & Plan Expressive aphasia ED Provider Note Diagnosis: TIA Disposition: Admission CHIEF COMPLAINT: Expressive aphasia HPI: Patient is a 75-year-old female presenting with complaint of episode of expressive aphasia. Patient states this morning while at the gym she noticed that she was not herself. Patient states that she had an episode of blurred vision in the right eye briefly as well as trouble with speaking and getting the words out that she was thinking of. Patient went to call her daughter and could not remember her son-in-law's name. Patient had trouble upon arrival in the emergency room with speaking the words that were on the stroke card. Patient was activated upon arrival in triage as a stroke alert. Patient denied any trouble with muscle strength of the upper or lower extremities or sensation deficits. Patient has not had any previous strokes herself. PAST MEDICAL HISTORY: See Below PAST SURGICAL HISTORY: See Below SOCIAL HISTORY: See Below HOME MEDICATIONS: See Below ALLERGIES: See Below VITALS: See Below PHYSICAL EXAMINATION: GENERAL: Well appearing, well nourished, NAD, non-toxic. EYE EXAM: Normal conjunctiva. OROPHARYNX: Moist mucus membranes. Grossly normal dentition. NECK: Supple, LUNGS: Clear to auscultation. Normal chest wall mechanics. HEART: NSR ABDOMEN: Abdomen soft, non-tender, normo-active bowel sounds, no masses, no rebound or guarding BACK: No CVA TTP. SKIN: No rashes and no bruising. UPPER EXTREMITIES: Upper extremities are grossly normal LOWER EXTREMITIES: Grossly normal, no edema. NEURO EXAM: A&O x3,, expressive aphasia, 5 out of 5 muscle strength upper and lower extremities bilaterally, Intact sensation upper and lower extremities bilaterally PSYCH: Cooperative MEDICAL DECISION MAKING: History obtained from: Patient ER Course: Patient is a 75-year-old female presenting with complaint of expressive aphasia. Patient symptoms started at 8 AM this morning. Patient had brief episode of blurred vision of the right eye. Patient has no previous strokes. Patient came in by triage by private vehicle to the emergency room for evaluation. Patient was activated as a stroke alert. Patient's NIH was 1 for expressive aphasia. Patient had no other focal deficits on exam. Patient was seen by telestroke physician by computer cart and TNK was not recommended at this time due to improving symptoms. By time the end of the patient's ER course her symptoms had almost completely resolved. Patient was loaded with aspirin and Plavix and case was discussed with hospitalist service for admission to the hospital further treatment and evaluation. Labs (independently interpreted) are significant for: No leukocytosis EKG interpretation (independently interpreted): Normal sinus rhythm no ST segment elevation or depression Medications given: Aspirin and Plavix Consultants: Discussion with telestroke team, they evaluated the patient at bedside. Did not recommend TNK due to improving symptoms. NIH 1. Patient was recommended to be loaded with aspirin and Plavix which were ordered. Patient to be admitted for further neurologic workup. Triage Nursing notes reviewed and agree them. Vital Signs: reviewed and remarkable for: no significant abnormalities Past Med/Surg History Problem List (Updated 07/19/25 @ 14:28 by Roberto Peguero DO) Expressive aphasia (Acute) TIA (transient ischemic attack) Expressive aphasia S/P laparoscopic hernia repair Tachycardia (Acute) Left inguinal hernia [facility] in [place] 1976 Medical History Hearing deficit BL GALINDO History of atrial fibrillation dx 5 years ago - resolved after ablation 3 years ago at [facility] [place] - does not follow w/ cardiology History of migraine Left inguinal hernia Scoliosis Surgical History H/O left inguinal hernia repair (11/05/19) Laparoscopic left inguinal hernia repair. Dr. Paredes 11/05/19 History of anesthesia reaction 2005 - [facility] - bone marrow harvest - "i went into shock. i spent 8 hours in the ICU" - no issues w/ surgery/anesthesia since. History of arthroscopy of shoulder RT History of bone marrow donation History of cardiac radiofrequency ablation 3 years ago - [facility] [place] History of colonoscopy History of right inguinal hernia repair S/P laparoscopic hernia repair Status post tonsillectomy Family History Sister Cancer Mother Stroke Grandmother Stroke Father Diabetes Social History Smoking Status: Never smoker Second Hand Exposure: Yes (as a child); Do You Dip or Chew Tobacco: No; Hx Alcohol Use: No Hx Substance Use: No Preferred Language: Tamazight Communication Ability: Effective Visual Impairment: No Limitations Foster Care Therapist Required: No Beliefs That Will Affect Care: None marital status: Current Living Situation: Spouse current occupational status: employed 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 Feels Safe at Home: Yes Assistive Devices: Contacts, Glasses and Hearing Aid - Bilateral Allergies Allergies Allergy/AdvReac Type Severity Reaction Status Date / Time Penicillins Allergy swelling, Verified 01/25/22 13:51 hives Home Meds Home Medications Medication Instructions Recorded Confirmed alendronate 35 mg tablet 35 mg PO UD 07/19/25 07/19/25 conj estrogen-medroxyprogesterone 1 tab PO DAILY 07/19/25 07/19/25 0.45 mg-1.5 mg tablet (Prempro) tretinoin 0.025 % topical cream 0 applic topical Q OTHER DAY 07/19/25 07/19/25 Results & Data (ED) Vital Signs Vital Signs - 24 hr 07/19/25 09:41 07/19/25 10:24 07/19/25 10:27 Temperature 36.3 C L Temperature Source Temporal Artery Scan Pulse Rate 90 112 H Pulse Rate [Finger] Respiratory Rate 18 23 Respiratory Effort / Characteristics Non-Labored Spontaneous Respiratory Depth Normal Respiratory Pattern Regular Blood Pressure 161/83 H 162/106 H Blood Pressure [Right Arm] Blood Pressure Mean 109 115 Blood Pressure Mean [Right Arm] Blood Pressure Position Sitting Blood Pressure Position [Right Arm] Pulse Oximetry 100 Oxygen Delivery Method Room Air Sepsis Recent Fever Within 48 Hours No Sepsis New/Unexplained Change in Mental Status Yes Sepsis Action Taken by Nursing No Action Required 07/19/25 10:30 07/19/25 10:30 07/19/25 10:32 Temperature Temperature Source Pulse Rate 111 H 111 H Pulse Rate [Finger] Respiratory Rate 21 Respiratory Effort / Characteristics Respiratory Depth Respiratory Pattern Blood Pressure 169/103 H 169/103 H Blood Pressure [Right Arm] Blood Pressure Mean 125 125 Blood Pressure Mean [Right Arm] Blood Pressure Position Blood Pressure Position [Right Arm] Pulse Oximetry Oxygen Delivery Method Sepsis Recent Fever Within 48 Hours Sepsis New/Unexplained Change in Mental Status Sepsis Action Taken by Nursing 07/19/25 10:48 07/19/25 10:57 07/19/25 11:00 Temperature Temperature Source Pulse Rate 114 H 86 Pulse Rate [Finger] Respiratory Rate 20 17 Respiratory Effort / Characteristics Respiratory Depth Respiratory Pattern Blood Pressure 158/88 H Blood Pressure [Right Arm] Blood Pressure Mean 119 Blood Pressure Mean [Right Arm] Blood Pressure Position Blood Pressure Position [Right Arm] Pulse Oximetry Oxygen Delivery Method Sepsis Recent Fever Within 48 Hours Sepsis New/Unexplained Change in Mental Status Sepsis Action Taken by Nursing 07/19/25 13:30 Temperature Temperature Source Pulse Rate Pulse Rate [Finger] 77 Respiratory Rate 18 Respiratory Effort / Characteristics Respiratory Depth Respiratory Pattern Blood Pressure Blood Pressure [Right Arm] 157/90 H Blood Pressure Mean Blood Pressure Mean [Right Arm] 112 Blood Pressure Position Blood Pressure Position [Right Arm] Sitting Pulse Oximetry 100 Oxygen Delivery Method Sepsis Recent Fever Within 48 Hours Sepsis New/Unexplained Change in Mental Status Sepsis Action Taken by Nursing Laboratory Data 07/19/25 10:08 07/19/25 10:08 Lab Results 07/19/25 07/19/25 07/19/25 Range/Units 10:08 10:17 10:18 WBC 6.13 (4.8-10.8) K/ul RBC 3.76 L (4.20-5.40) M/uL Hgb 11.8 L (12.0-16.0) g/dl POC Hgb 12.6 (12.0-16.0) g/dl Hct 35.8 L (37.0-47.0) % POC Hct 37 (37-47) % MCV 95.2 (80.0-100.0) fL MCH 31.4 (25.0-34.0) pg MCHC 33.0 (32.0-36.0) g/dL RDW Std Deviation 43.0 (36.4-46.3) fL RDW Coeff of Nikolay 12.3 (11.5-14.5) % Plt Count 270 (130-400) K/uL MPV 10.0 (9.4-12.4) fL Immature Gran % (Auto) 0.2 % Neut % (Auto) 53.9 % Lymph % (Auto) 35.6 % Rapides % (Auto) 8.6 % Eos % (Auto) 1.0 % Baso % (Auto) 0.7 % Neut # (Auto) 3.31 (1.40-6.50) K/uL Lymph # (Auto) 2.18 (1.20-3.40) K/uL Rapides # (Auto) 0.53 (0.11-0.59) K/uL Eos # (Auto) 0.06 (0.00-0.50) K/uL Baso # (Auto) 0.04 (0.00-0.20) K/uL Immature Gran # (Auto) 0.01 (0.01-0.20) K/uL PT 11.0 (9.0-12.0) Seconds INR 1.0 (0.9-1.1) APTT 27 (21-31) Seconds PTT Ratio 1.0 POC Sodium 132 L (135-144) mmol/L Sodium 132 L (136-145) mmol/L POC Potassium 4.0 (3.3-5.0) mmol/L Potassium 3.5 (3.5-5.1) mmol/L POC Chloride 97 L (101-112) mmol/L Chloride 99 (98-107) mmol/L Carbon Dioxide 25 (21-32) mmol/L POC Total CO2 26 (24-31) mmol/L Anion Gap 8 (3-11) POC Anion Gap 15.0 L (16-25) mmol/L POC BUN 8 (7-18) mg/dl BUN 8 (6-23) mg/dl Creatinine 0.66 (0.6-1.2) mg/dl POC Creatinine 0.7 (0.6-1.3) mg/dl Est Cr Clr Drug Dosing 60.9 ml/min eGFR 91.42 BUN/Creatinine Ratio 12.1 (10-20) Glucose 88 (70-99(Fasting)) mg/dl POC Glucose 94 (70-99) mg/dl POC Glucose (other) 86 (70-99) mg/dl Calcium 8.7 (8.6-10.3) mg/dl POC Ioniz Calcium Valentine 1.08 L (1.12-1.32) mmol/l Magnesium 1.8 (1.7-2.4) mg/dl Total Bilirubin 0.6 (0.2-1.0) mg/dl AST 18 (13-39) U/L ALT 9 (7-52) U/L Alkaline Phosphatase 39 (34-104) U/L Troponin I High Sens 3.0 (0-14) pg/ml Total Protein 6.7 (6.0-8.3) gm/dl Albumin 3.6 (3.4-5.0) gm/dl Globulin 3.1 (2.5-4.0) gm/dl Albumin/Globulin Ratio 1.2 (0.9-2) Blood Type O Positive Antibody Screen NEGATIVE Administered Medications Sodium Chloride (Nss) 500 mls @ 80 mls/hr IV .Q6H15M JOSE Stop: 07/19/25 18:14 Last Admin: 07/19/25 13:25 Dose: 80 mls/hr Documented By: HUBER Ondansetron HCl (Ondansetron Inj 2 Mg/Ml 2 Ml Vial) 4 mg IV Q6H PRN PRN Reason: Nausea Stop: 08/18/25 12:02 Last Admin: 07/19/25 13:18 Dose: 4 mg Documented By: HUBER Discontinued Medications Acetaminophen/Butalbital/Caffeine (Butalbital/Acetamin/Caffeine Tab) 1 tab PO NOW STA Stop: 07/19/25 11:59 Last Admin: 07/19/25 13:17 Dose: 1 tab Documented By: HUBER Aspirin (Aspirin 81 Mg Chew) 324 mg PO NOW STA Stop: 07/19/25 11:20 Last Admin: 07/19/25 11:26 Dose: 324 mg Documented By: CEF Clopidogrel Bisulfate (Clopidogrel Bisulfate 300 Mg Tab) 300 mg PO NOW STA Stop: 07/19/25 11:20 Last Admin: 07/19/25 11:26 Dose: 300 mg Documented By: CEF Ioversol (Optiray 320 125ml) 112 ml IV ONCE ONE Stop: 07/19/25 10:05 Last Admin: 07/19/25 10:04 Dose: 112 ml Documented By: REVA Imaging Data Radiologist's Impression: Head CT 07/19/25 09:55 CT SCAN OF THE BRAIN WITHOUT IV CONTRAST CLINICAL HISTORY: Neuro deficit. Acute stroke suspected. COMPARISON STUDY: MRI of the brain July 20, 2011. TECHNIQUE: Unenhanced axial CT scan of the brain was performed from the vertex to the skull base. A dose lowering technique was utilized adhering to the principles of ALARA. FINDINGS: Brain parenchyma: No acute intracranial hemorrhage, midline shift or mass effect is present. Flannery-white matter differentiation is preserved. There are no extra- axial fluid collections. There are no findings to suggest acute dural sinus thrombosis or acute territorial infarct. Mild white matter hypodensities suggest small vessel disease. Ventricles, sulci, cisterns: There is no hydrocephalus. The basal cisterns are patent. Calvarium: Unremarkable. Sinuses and mastoids: The visualized paranasal sinuses are clear. The mastoid air cells are well pneumatized. Orbits: The bony orbits are grossly intact. IMPRESSION: No acute intracranial findings. ACT 112: Negative or not required by law. Electronically signed by: Teo Gaming M.D. 07/19/2025 10:43 AM Head CTA 07/19/25 09:55 CT angio head w con CLINICAL HISTORY: 75 years-old Female with neuro deficit, acute stroke suspected. Acute stroke like symptoms COMPARISON STUDY: Head CT same day, brain MR 07/20/2011 TECHNIQUE: Following the IV administration of 112 cc of Optiray, CT angiogram of the brain was performed from the skull base to the vertex. Images are reviewed in the axial, sagittal, and coronal planes. 3-D MIPS images are created and assessed. IV contrast was administered without complication. All measurements were obtained according to NASCET criteria. A dose lowering technique was utilized adhering to the principles of ALARA. FINDINGS: CT BRAIN: Dictated separately. 11 mm calcified extra-axial focus within the anterior right middle cranial fossa May represent a meningioma. CT ANGIOGRAM OF THE BRAIN: The imaged bilateral internal carotid arteries are patent. The bilateral anterior and middle cerebral arteries are also patent. The vertebrobasilar system and posterior cerebral arteries are widely patent. There is no aneurysm, high-grade stenosis, or proximal branch occlusion identified. Dural sinuses appear patent. IMPRESSION: Unremarkable CTA of the head. ACT 112: Negative or not required by law. The above report was generated using voice recognition software. It may contain grammatical, syntax or spelling errors. Electronically signed by: Hussein Hogue M.D. 07/19/2025 10:33 AM Neck CTA 07/19/25 09:55 CT angio neck with con CLINICAL HISTORY: neuro deficit, acute stroke suspected. TECHNIQUE: Following the IV administration of 112 of Optiray, CT angiogram of the neck was performed from the aortic arch to the skull base. Images are reviewed in the axial, sagittal, and coronal planes. 3-D MIPS images are created and assessed. IV contrast was administered without complication. All measurements were calculated based on NASCET criteria. A dose lowering technique was utilized adhering to the principles of ALARA. CT DOSE: 1111.65 mGy.cm COMPARISON STUDY: None FINDINGS: There are mild calcifications at the carotid bulbs. Bilateral common and internal carotid arteries and bilateral vertebral arteries show no significant narrowing or occlusion. IMPRESSION: No significant arterial narrowing or occlusion seen at the neck. ACT 112: Negative or not required by law. The above report was generated using voice recognition software. It may contain grammatical, syntax or spelling errors. Electronically signed by: Arvin Bowles M.D. 07/19/2025 10:48 AM Brain MRI 07/19/25 11:25 MR brain wo con CLINICAL HISTORY: expressive aphasia COMPARISON STUDY: Head CT earlier today and MRI of 07/20/2011 FINDINGS: There is motion artifact on some sequences. No restricted diffusion seen to suggest acute infarction. No mass effect, midline shift, or hydrocephalus. There are multiple scattered small foci of increased FLAIR signal intensity in the periventricular white matter which is nonspecific, but usually represents chronic small vessel ischemic change. IMPRESSION: No evidence of acute infarction seen. ACT 112: Negative or not required by law. Electronically signed by: Arvin Bowles M.D. 07/19/2025 1:[address] 07/19/25 11:58 CT SCAN OF THE BRAIN WITHOUT IV CONTRAST CLINICAL HISTORY: Headache after aspirin and Plavix. Evaluate for bleed. COMPARISON STUDY: Head CT and CTA of the head performed earlier today. TECHNIQUE: Unenhanced axial CT scan of the brain was performed from the vertex to the skull base. A dose lowering technique was utilized adhering to the principles of ALARA. CT DOSE: 625.8 mGy.cm FINDINGS: Incidental note is made of intravascular contrast from recent CTA. No acute intracranial hemorrhage is identified. Ventricular system is stable. Basal cisterns are patent. There are no extra axial collections. There are no findings to suggest acute dural sinus thrombosis or acute territorial infarct. IMPRESSION: No acute intracranial findings. ACT 112: Negative or not required by law. Electronically signed by: Teo Gaming M.D. 07/19/2025 12:41 PM Discharge Plan Visit Data Chief Complaint: Stroke/CVA Symptoms Stated Complaint: TROUBLE SPEAKING, CONFUSION, HEADACHE, TIRED ED Provider: Roberto Peguero Discharge Problem: Expressive aphasia Condition: Fair Forms Stand Alone Forms: My [facility] [employer] Prescriptions Prescriptions: No Action alendronate 35 mg tablet 35 mg PO UD Prempro 0.45-1.5 mg tablet 1 tab PO DAILY Patient Comments: 07/19-filled 06/16 28 day supply tretinoin 0.025 % cream 0 applic topical Q OTHER DAY Patient Comments: 07/19- no fill history unable to verify Referrals Referrals: Aniya Terry DO [Primary Care Provider] -
[2025-07-19] MEDS: ROSUVASTATIN CALCIUM 10 MG TAB PO STA (14:39)
--- NOTE | 2025-07-19 16:18 | XCELERA ---
[id number]
[2025-07-19 17:19] LABS: Magnesium 2.0 mg/dl (1.7-2.4)
[2025-07-19 17:32] LABS: INR 1.0 (0.9-1.1); Partial Thromboplastin Time 28 Seconds (21-31); Prothrombin Time 10.7 Seconds (9.0-12.0)
[2025-07-20 06:04] LABS: Hematocrit (blood only) 33.9 % (37.0-47.0); Hemoglobin 11.9 g/dl (12.0-16.0); Mean Corpuscular Hemoglobin 32.6 pg (25.0-34.0); Mean Corpuscular Volume 92.9 fL (80.0-100.0); Platelet Count 267 K/uL (130-400); RDW Standard Deviation 41.9 fL (36.4-46.3); Red Blood Count 3.65 M/uL (4.20-5.40); White Blood Count 4.73 K/ul (4.8-10.8)
[2025-07-20 06:19] LABS: Alanine Aminotransferase 10.0 U/L (7-52); Albumin Globulin Ratio 1.2 (0.9-2); Albumin Level 3.7 gm/dl (3.4-5.0); Alkaline Phosphatase 42.0 U/L (34-104); Anion Gap 7.0 (3-11); Bilirubin,Total 0.7 mg/dl (0.2-1.0); Blood Urea Nitrogen 8.0 mg/dl (6-23); Calcium 8.7 mg/dl (8.6-10.3); Carbon Dioxide 27.0 mmol/L (21-32); Chloride 103.0 mmol/L (98-107); Cholesterol 150.0 mg/dl (0-200); Creatinine Clr Calc Pharmacy 55.1 ml/min; Globulin 3.0 gm/dl (2.5-4.0); Glucose 90.0 mg/dl (70-99(Fasting)); HDL Cholesterol 67.0 mg/dl; Potassium 3.7 mmol/L (3.5-5.1); Sodium 137.0 mmol/L (136-145); Total Protein 6.7 gm/dl (6.0-8.3); Triglycerides 70.0 mg/dl (0-150)
[2025-07-20 06:33] LABS: Thyroid Stimulating Hormone 2.042 uIu/ml (0.300-4.500)
[2025-07-20 07:24] LABS: Hemoglobin A1C 5.4 % (4.5-5.6)
[2025-07-20] MEDS: ASPIRIN 81 MG CHEW PO SCH (09:35)
[2025-07-20] MEDS: CLOPIDOGREL BISULFATE 75 MG TAB PO SCH (09:35)
[2025-07-20] MEDS: ROSUVASTATIN CALCIUM 10 MG TAB PO SCH (09:35)
--- NOTE | 2025-07-20 16:24 | Discharge Summary ---
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 her CT head, brain MRI was negative she was on aspirin, plavix, she developed headadche, but repeat MRI negative, s/p IV fluid she's s/p echo and negative for WMA we discussed with patient that she should stop her estrogen-medroxyprogesterone she was dc home on aspirin 81 mg, plavix 75mg, and crestor she plan to f/u with marine architect Dr. 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 she's has extensively FHx of stroke. 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 she's call her granddaughter who works as an EMS upon arrival in our ED, her expressive aphasia resolved; loading with aspirin, plavix and around 10:45am, notice headache episode, repeat CT head was ordered, which is negative for bleeding 1. expressive aphasia, TIA episode 2. hx of A-fib s/p ablation 3. PMH of osteoporosis 4. hx of hormonal deficiency on estrogen-medroxyprogesterone brain MRI, echo with bubble studies event monitoring aspirin, plavix, IV fluid, crestor 20mg she's active at baseline, f/u on a1c and lipid panel she will prefer to f/u with the marine architect at [place] we discussed that she's need to hold estrogen-medroxprogesterone and consult to her position classification manager fioricet for headache (2) TIA (transient ischemic attack): Notes For Next Care Provider recheck LFT while on statin recheck lipid panel in 3 months referral to cardiology and neurology Medication Changes From Visit started aspirin 81mg, plavix 75mg, and crestor Admission HPI Per Admitting Provider Mary Gaviria is a 75 yo woman with PMH of A-fib s/p ablation 3 years ago at ([facility]), osteoporosis, scolosis, 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, when she's was exercise in the gym, she's has significant expressive aphasia,, unable to name simple object she's called her daughter, her granddaughter is a EMS, and brought here here for evaluation upon arrival to ED, her expressive aphasia resolved, she was loaded with aspirin, plavix and CT head negative for bleeding on evaluation at 10:45am, she's has no problem with speech and no problem with comprehension given she was having posterior headache and nausea, repeat CT head was ordered to r/o intracranial bleeding for her TIA, no numbness, no weaknness; no dizziness, no loss of consciouness she's does has extensive Fhx of stroke in family (mother, aunt and grandmother) for her A-fib, ablation at [place], she's denied any subjective palpitation we discussed at length about f/u with cardiology and she requested appointment to be made with [place] marine architect no abdominal pain, no dysuria Discharge Exam VITALS: Reviewed. WEIGHT/BMI reviewed. GEN: Healthy appearing, well-developed, NAD. Neuro: AAox3; no pronator drift; normal finger to nose; 5/5 strength; CN 2-12 grossly intact able to repeat sentence; able to name objects PSYCH: Good Judgment. AOx3. Normal memory, mood, and affect. HEENT -Head: NC/AT; NECK: Supple, with no masses. CV: RRR, no m/r/g. LUNGS: CTAB, no w/r/c. ABD: Soft, NT/ND, NBS, no masses or organomegaly. : N/A SKIN: Warm, well perfused. No skin rashes or abnormal lesions. MSK: No deformities, Normal gait. EXT: No clubbing, cyanosis, or edema. Discharge Plan Discharge Items Patient Disposition: Home - Self-Care Reason For Visit: TIA, HEADACHE, EXPRESSIVE APHASIA, [employer] PROFESS[employer] Discharge Diagnosis: TIA, expressive aphasia Condition on Discharge: Fair Activity: Per Instructions section Lifting: Gradually increase as tolerated Non-emergency contact: Primary Care Provider and Safety And Health Manager Call non-emergency contact if: your symptoms worsen and you have a fever Follow-up/Referrals: Aniya Terry DO [Primary Care Provider] - 07/26/25 12:45 pm Rosa Strauss DO [Physician] - (Per [facility] [place], Pt will be scheduled to establish with Cardiology from her visit with her PCP.) Diet: Low Fat Addtl Attending Provider Instructions: you will follow up with cardiology for establishment of event monitor in [facility], you will to return to ED for evaluation if you has speech disturbance, dizziness, vision change facial droop, weakness, confusion stop your hormone replacement therapy, follow up with your position classification manager Pending Studies at Discharge: Yes Studies:: event monitor, check liver function test while on statin Stand-Alone Forms: My [facility], Smoking Cessation Medications and DC Order Prescriptions: New clopidogrel 75 mg Tablet 75 mg PO QAM 30 Days Qty: 30 0RF aspirin [Children's Aspirin] 81 mg Tablet,Chewable 81 mg PO DAILY 30 Days Qty: 30 0RF rosuvastatin 10 mg Tablet 10 mg PO QAM 30 Days Qty: 30 0RF Continued alendronate 35 mg tablet 35 mg PO UD tretinoin 0.025 % cream 0 applic topical Q OTHER DAY Patient Comments: 07/19- no fill history unable to verify Discontinued Prempro 0.45-1.5 mg tablet 1 tab PO DAILY Patient Comments: 07/19-filled 06/16 28 day supply Discharge Orders: Discharge Order (Routine); Ordered 07/20/25 Ordered By: Blanca Rolle/Other Patient Handouts: What Is a TIA?, What Is Event Monitoring?, TIA Dc, ED TIA: Transient Ischemic Attack Admission Data Admit Date/Time: 07/19/25 11:59 Attending Provider: Blanca Springer Admit Provider: Blanca Springer Primary Care Provider: Aniya Terry Other Providers: Isaiah Villeda Other Interventions: Discharge Summary Assessment (RN) Last Done: 07/20/25 10:33 Hospital Stay Data Consultations 07/19/25 11:19 ED Decision to Admit Stat Diagnostic Imagining Performed 07/19/25 09:55 CT angio head w con Stat CT angio neck with con Stat CT head/brain wo con Stat 07/19/25 11:25 MRI Brain [MR brain wo con] Stat 07/19/25 11:58 CT head/brain wo con Stat Pending Results Patient Have Any Pending Studies at Discharge: Yes Discharge Instructions Given to Patient (Per Discharging Provider) you will follow up with cardiology for establishment of event monitor in [facility], you will to return to ED for evaluation if you has speech disturbance, dizziness, vision change facial droop, weakness, confusion stop your hormone replacement therapy, follow up with your position classification manager Total Time Total Time Spent Total Time Spent (In Minutes): 25 Coding Level of Care Code 42083 IN/OBS DISCH 30 MIN/LESS Diagnoses Expressive aphasia R47.01 TIA (transient ischemic attack) G45.9 Time Spent (min) 25
== END 2025-07-20 11:55 | disposition home or self-care (01) | DRG 69 ==
LOC: ED 09:38 → EDINP 11:59 → 4W 14:48